=== PATIENT | female | born 1935 | race Caucasian/White ===

== ENCOUNTER 2016-05-06 11:20 | Emergency (ER) | payer MEDICARE ==
[2016-05-06 11:54] LABS: ABSOLUTE NEUTROPHIL COUNT 4.9 K/mm3 (1.8-7.7); BASO # 0.1 K/mm3 (0.0-0.2); BASO % 0.9 % (0.2-1.0); EOS # 0.1 (0.0-0.5); EOS % 1.5 % (0.9-2.9); HEMATOCRIT 43.4 % (37.0-47.0); HEMOGLOBIN 13.9 gm/l (12.0-16.0); IMM NEUT% 0.4 % (0-1); LYMPH # 2.7 (1.0-4.8); LYMPH % 31.6 % (15-45); MEAN CELL VOLUME 87.1 fl (81.0-99.0); MEAN CORPUSCULAR HEMOGLOBIN 27.9 pg (27.0-31.0); MEAN PLATELET VOLUME 9.1 fl (7.4-10.4); MONO # 0.8 (0.0-0.8); MONO % 8.8 % (4-12); NEUT % 56.8 % (43-75); PLATELET COUNT 328 K/mm3 (130-400); RED CELL DISTRIBUTION WIDTH 13.3 % (11.5-14.5)
[2016-05-06 12:03] LABS: ALB/GLOB RATIO 1.3 (>1.0); CALCIUM 9.5 mg/dL (8.6-10.3)
[2016-05-06] MEDS ORDERED: ONDANSETRON 4 MG ODT TAB ONE (12:23)
[2016-05-06] MEDS ORDERED: MECLIZINE HCL 25 MG TABLET ONE (12:23)
== END 2016-05-06 14:26 | disposition home or self-care (01) ==
LOC: ED 11:20
DX: R42 Dizziness and giddiness (principal); Z86.73 Personal history of transient ischemic attack (TIA), and cerebral infarction without residual deficits
CPT/HCPCS: 85025; 80053; 84484; 99284 ×2; 93005 ×2; A9270 ×2